=== PATIENT | female | born 1970 | race Caucasian/White ===

== ENCOUNTER 2016-11-14 20:51 | Emergency (ER) | payer OTHER ==
[~2016-11-14] VITALS: Ht 160 cm; Wt 49.9 kg
--- NOTE | 2016-11-14 21:15 | NUR ---
TO BED 3 AMBULATORY C/O DIZZINESS, NAUSEA S/P EATING PEANUTS. PT AAOX4 NO ACUTE DISTRESS NOTED, RESP EVEN AND UNLABORED. PENDING ER MD JACKSON.
[2016-11-14] MEDS ORDERED: MECLIZINE HCL 25 MG TABLET PO ONE (21:30)
[2016-11-14] MEDS ORDERED: ONDANSETRON HCL/PF 4 MG/2 ML VIAL IVP ONE (21:30)
[2016-11-14] MEDS ORDERED: IV NS 0.9% 1,000 ML BAG IV ONE (21:30)
[2016-11-14] MEDS ORDERED: ONDANSETRON HCL/PF 4 MG/2 ML VIAL ONE (21:36)
[2016-11-14] MEDS ORDERED: MECLIZINE HCL 25 MG TABLET ONE (21:36)
[2016-11-14 21:38] LABS: BASOPHILS % (AUTO) 0.5 % (0.0-2.0); EOSINOPHILS # (AUTO) 0.1 /CMM (0.0-0.7); EOSINOPHILS % (AUTO) 2.4 % (0.0-6.0); HEMATOCRIT 35 % (33-45); HEMOGLOBIN 11.9 g/dL (11.5-14.8); LYMPHOCYTES # (AUTO) 1.2 /CMM (0.8-4.8); MEAN CORPUSCULAR HEMOGLOBIN 30 PG (26.0-33.0); MEAN CORPUSCULAR HGB CONC 34 g/dl (31.0-36.0); MEAN CORPUSCULAR VOLUME 89 fL (82-100); MONOCYTES # (AUTO) 0.5 /CMM (0.1-1.30); MONOCYTES % (AUTO) 8.2 % (2.0-12.0); NEUTROPHILS # (AUTO) 3.9 /CMM (1.8-8.9); NEUTROPHILS % (AUTO) 67.9 % (43.0-81.0); PLATELET COUNT (AUTO) 147 /CMM (150-450); RDW COEFFICIENT OF VARIATION 12.1 (11.5-15.0); RED BLOOD CELL COUNT(AUTO) 3.94 MIL/uL (4.0-5.2); WHITE BLOOD COUNT (AUTO) 5.7 K/uL (4.3-11.0)
--- NOTE | 2016-11-14 21:39 | NUR ---
RN AT BEDSIDE TO MEDICATE PT.
[2016-11-14 21:48] LABS: CREATININE 0.7 mg/dL (0.6-1.3); POTASSIUM 3.4 mmol/L (3.5-5.1)
[2016-11-14 21:54] LABS: ALBUMIN 4.2 g/dL (3.4-5.0); BILIRUBIN,DIRECT 0.1 mg/dL (0.0-0.2); BILIRUBIN,TOTAL 0.4 mg/dL (0.2-1.0); TOTAL PROTEIN, SERUM 7.4 g/dL (6.4-8.2)
--- NOTE | 2016-11-14 22:34 | NUR ---
IV removed. Catheter intact and site benign. Pressure and 4x4 applied to site. No bleeding noted. Patient discharged to home in stable condition. Written and verbal after care instructions given. Patient verbalizes understanding of instruction. ambulatory with a steady gait. pt s/o at bedside to take pt home.
[2016-11-14 22:35] VITALS: BP 132/62
== END 2016-11-14 22:35 | disposition home or self-care (01) ==
LOC: ER 20:55
DX: H81.10 Benign paroxysmal vertigo, unspecified ear (principal); Z88.1 Allergy status to other antibiotic agents
CPT/HCPCS: 36415; 80048; 80076; 83690; 84703; 85025; 96361; 96374; 99284; A4606; J2405; J7030; J8597; Z7610